=== PATIENT | male | born 1960 | race Caucasian/White ===

== ENCOUNTER 2017-02-06 09:37 | Day surgery (SDC) | payer BC ==
[2017-02-04 15:55] VITALS: BMI 27.4
[2017-02-06] MEDS ORDERED: MIDAZOLAM HCL 2 MG/2 ML SINGLE DOSE VIAL ONE (10:33)
[2017-02-06] MEDS ORDERED: DEXAMETHASONE SOD PHOSPHATE/PF 10 MG/ML SDV ONE (10:33)
[2017-02-06] MEDS ORDERED: ROPIVACAINE HCL 0.5% 30ML VIAL ONE (10:33)
[2017-02-06] MEDS ORDERED: BUPIVACAINE HCL/EPINEPHRINE/PF 30 ML VIAL IJ ONE (10:49)
[2017-02-06] MEDS ORDERED: PROPOFOL 20 ML ONE (10:56)
--- NOTE | 2017-02-06 11:01 | HP ---
History & Physical Update - History History: No Change - Physical Physical: No Change - Assessment Assessment: No Change - Plan Plan: No Change
[2017-02-06] MEDS ORDERED: DEXAMETHASONE SOD PHOSPHATE 4 MG/1 ML VIAL ONE (11:19)
[2017-02-06] MEDS ORDERED: ceFAZolin SODIUM 1 GM VIAL ONE (11:19)
[2017-02-06] MEDS ORDERED: ONDANSETRON 4 MG/2 ML VIAL ONE (11:19)
[2017-02-06] MEDS ORDERED: oxyCODONE HCL 10 MG SUSTAINED ACTING TABLET PO ONE (12:34)
[2017-02-06] MEDS ORDERED: oxyCODONE HCL 5 MG TABLET PO PRN (12:34)
--- NOTE | 2017-02-06 12:37 | DS ---
Physical Examination Vital Signs: Vital Signs Temperature 97.7 F 02/06/17 09:54 Pulse Rate 71 02/06/17 09:54 Respiratory Rate 16 02/06/17 09:54 Blood Pressure 138/89 02/06/17 09:54 O2 Sat by Pulse Oximetry (%) 99 02/06/17 09:54 Discharge Summary Reason For Visit: ROTATOR CUFF TEAR, LEFT SHOULDER Condition: Good - Instructions Diet, Activity, Other Instructions: Post Operative Instructions: Shoulder Arthroscopy Dr Taz Ferris 1. Pain following a Shoulder Arthroscopy is variable and can be significant. Some patients will have more pain than others. You have been provided with a prescription for medication that contains a narcotic. You are not allowed to drive while on this medication. You should NOT take Tylenol (Acetaminophen) when taking the pain medication ( it will result in an overdose). Feel free to take medications such as Ibuprofen or Naprosyn in addition to the pain medicine if you do not have any problems with the NSAID class of medications. 2. Apply ice to the shoulder for 15 minutes every hour. You may continue this for as many days as necessary. 3. You may find sleeping on an incline (reclining chair) to be more comfortable for the first few days. 4. You must remain in your sling at all times except when showering. The only exception to this is to allow you to stretch your elbow a few times a day to prevent your hand and forearm from swelling. 5. You are not to use your arm to reach for anything, lift anything or carry anything until instructed otherwise. 6. You may remove the bandages in 48 hours. You may shower at that point. 7. Place band-aids on the sutures after your shower.Do not put any creams or lotions on the incision until after the sutures are removed. 8. Please call the office to schedule a visit to have your sutures removed. 9. If for any reason you believe you may have an infection or are concerned, please feel free to call me. I can be reached through our office number 24 hours a day. 10. Please call our office with any questions; we will review the surgical findings during your post-operative visit. Disposition: HOME - Home Medications Comprehensive Discharge Medication List: Ambulatory Orders NK [No Known Home Medication] 01/28/17
--- NOTE | 2017-02-06 12:37 | OP ---
Operative Note - Note: Operative Date: 02/06/17 Pre-Operative Diagnosis: Right shoulder rotator cuff tear, degenerative cuff tear, biceps partial tear Operation: RSA, rotator cuff repair, labral debridement, biceps tenodesis Post-Operative Diagnosis: Same as Pre-op Surgeon: Taz Ferris Anesthesia: General Operative Report Dictated: Yes
[2017-02-06] MEDS ORDERED: ONDANSETRON 4 MG/2 ML VIAL IVPUSH PRN (13:36)
[2017-02-06] MEDS ORDERED: ACETAMINOPHEN 325 MG TABLET (FP) PO SCH (13:45)
--- NOTE | 2017-02-06 14:22 | SURG ---
Surgery Shrimping Boat Captain Note Shrimping Boat Captain: Iwona Thakkar PA-C Date of Service: 02/06/17 Diagnosis: Right shoulder rotator cuff tear, degenerative cuff tear, biceps partial tear Procedure: RSA, rotator cuff repair, labral debridement, biceps tenodesis I was present for the entirety of the operative procedure. For further detail, please refer to operative report. Visit type - Case Type Case Type: Scheduled Admission - Emergency Emergency Visit: No - New patient This patient is new to me today: Yes Date on this admission: 02/06/17 - Critical Care Critical Care patient: No
[2017-02-06 14:46] VITALS: TEMP 97.6
[2017-02-06 14:50] VITALS: BP 108/68; PULSE 64
--- NOTE | 2017-02-11 14:37 | PATH ---
Surgical Pathology Report Patient Name: DENA ECHEVARRIA Med. Rec. #: [id number] /Age/Gender: 1960 (Age: 56) / M Account: [id number] Location: [facility] Taken: 02/06/2017 Received: 02/06/2017 Reported: 02/11/2017 Physicians: Taz Ferris M.D. Specimen(s) Received A: SHAVINGS LEFT SHOULDER B: LEFT BICEPS TENDON Clinical History Left RCR Final Diagnosis A. SHOULDER, LEFT, ARTHROSCOPIC SHAVINGS: FIBROSYNOVIAL TISSUE. B. BICEPS TENDON, LEFT, EXCISION: FIBROCOLLAGENOUS TISSUE, CONSISTENT WITH TENDON. Electronically Signed Molly Hurtado M.D. Gross Description A. Received in formalin, labeled "shavings left shoulder," is a 4.0 x 3.2 x 0.4 cm. aggregate of jacobo-yellow soft tissue fragments. A healthcare sales representative portion is submitted in one cassette. B. Received in formalin labeled "left biceps tendon," is a 7.7 x 0.9 x 0.5 cm jacobo portion of tendon. Radiation Protection Engineer sections are submitted in one cassette. DL/02/09/2017 saudi/02/09/2017
== END 2017-02-06 14:45 | disposition home or self-care (01) ==
LOC: FASU 09:37
PROVIDERS: ATTEND Orthopaedic Surgery
PROC: 0RBK4ZZ Excision of Left Shoulder Joint, Percutaneous Endoscopic Approach (ICD-10-PCS; 2017-02-06)
PROC: 0LS40ZZ Reposition Left Upper Arm Tendon, Open Approach (ICD-10-PCS; 2017-02-06)
PROC: 0RHK04Z Insertion of Internal Fixation Device into Left Shoulder Joint, Open Approach (ICD-10-PCS; 2017-02-06)
PROC: 0LB24ZZ Excision of Left Shoulder Tendon, Percutaneous Endoscopic Approach (ICD-10-PCS; principal; 2017-02-06 11:42)
PROC: 0RNK4ZZ Release Left Shoulder Joint, Percutaneous Endoscopic Approach (ICD-10-PCS; 2017-02-06 11:42)
PROC: 0MM24ZZ Reattachment of Left Shoulder Bursa and Ligament, Percutaneous Endoscopic Approach (ICD-10-PCS; 2017-02-06 11:42)
DX: M75.112 Incomplete rotator cuff tear or rupture of left shoulder, not specified as traumatic (principal); S43.432A Superior glenoid labrum lesion of left shoulder, initial encounter; S46.212A Strain of muscle, fascia and tendon of other parts of biceps, left arm, initial encounter; X58.XXXA Exposure to other specified factors, initial encounter; Y93.9 Activity, unspecified; Y92.9 Unspecified place or not applicable; M66.812 Spontaneous rupture of other tendons, left shoulder; M75.52 Bursitis of left shoulder; M13.812 Other specified arthritis, left shoulder
CPT/HCPCS: 88304-TC